=== PATIENT | male | born 1995 | race African-American/Black ===

== ENCOUNTER 2021-03-25 15:40 | Emergency (ER) | payer MEDICAID, SELFPAY ==
--- NOTE | ~2021-03-25 | XR_ITS ---
EXAMINATION: XR SOFT TISSUE NECK CLINICAL INDICATION: Question foreign body COMPARISON: None TECHNIQUE: 2 views of the soft tissue neck were obtained. FINDINGS: There is a foreign body overlying the nose. Otherwise no convincing evidence for a radiopaque foreign body. XR/XR soft tissue neck IMPRESSION: Foreign body overlying the nose.
--- NOTE | ~2021-03-25 | XR_ITS ---
EXAMINATION: XR CHEST CLINICAL INFORMATION: Concern for foreign body. COMPARISON: None TECHNIQUE: 2 views of the chest were obtained. FINDINGS: No radiopaque foreign body. No significant abnormality is noted involving the heart, lungs, mediastinum, bony thorax or soft tissues. XR/XR chest 2V IMPRESSION: Unremarkable examination. No radiopaque foreign body.
[2021-03-25 17:45] VITALS: BP 117/73; PULSE 60; RESP 18; TEMP 36.3; O2SAT 100; BMI 20.1
[2021-03-25 19:34] LABS: COVID-19 Test Negative (Negative)
[2021-03-25 20:03] VITALS: BP 115/82; PULSE 70; RESP 18; TEMP 36.8
[2021-03-25 20:11] LABS: IDNOW Serial# 08D9AD1C; Strep A Nucleic Acid Positive (Negative)
--- NOTE | 2021-03-25 20:40 | ED_ITS ---
HPI - General Adult General Chief complaint: General Medical Stated complaint: ?FB in throat Time Seen by Provider: 03/25/21 18:30 Source: patient Mode of arrival: ambulatory Limitations: no limitations History of Present Illness HPI narrative: 25-year-old male is here today for complaining of sore throat and difficulty swallowing. Patient reports that he has been sick 1 week ago with cold symptoms, cough, rhinorrhea, sinus pressure. Today he presents to emergency department reporting that when he swallows anything he feels like his throat is sore while he swallowing. He denies anything getting stuck in his throat, denies choking. Patient denies any shortness of breath, chest pain, palpitation. Patient denies any fever or chills. No ill contacts. Onset (ago): day(s) Location: mouth Radiation: non-radiation Severity: mild Quality: other (With swallowing) Related Data Previous Rx's Medication Instructions Recorded amoxicillin 500 mg capsule 500 mg PO TID 7 Days #21 cap 03/25/21 Allergies Allergy/AdvReac Type Severity Reaction Status Date / Time No Known Allergies Allergy Verified 03/25/21 17:44 Review of Systems Review of Systems: Constitutional : No Weight loss, No Fever, No Chills, No Night Sweats, No Fatigue, No Malaise ENT/Mouth : No Hearing loss, No Ear Pain, No Nasal Congestion, No Sinus Pain, No Hoarseness, sore throat, No Rhinorrhea, Swallowing Difficulty Eyes: No Eye Pain, No Swelling, No Redness, No Foreign Body, No Discharge, No Vision Changes Cardiovascular : No Chest Pain, No SOB, No Dyspnea on Exertion, No Orthopnea, No Edema, No Palpitations Respiratory : No Cough, No Sputum, No Wheezing, No Smoke Exposure, No Dyspnea Gastrointestinal : No Nausea, No Vomiting, No Diarrhea, No Constipation, No abdominal Pain, No Hematochezia, No Melena Genitourinary : no irregular bleeding, No Dysuria, No Urinary Frequency, No Hematuria, No Urinary Incontinence, No Urgency, No Flank Pain, No Urinary Flow Changes, No Hesitancy Musculoskeletal : No joint pain, No Myalgias, No Joint Swelling Skin : No Skin Lesions, No rash Neuro : No Weakness, No Numbness, No Paresthesias, No Loss of Consciousness, No Dizziness, No Headache Yes all other systems are reviewed and are negative ON LICENSE OF [facility] Social History Social History Advance Directives: No Physical Exam Vital Signs: Vital Signs: Last Vital Signs Temp 98.2 F 03/25/21 20:03 Pulse 70 03/25/21 20:03 Resp 18 03/25/21 20:03 BP 115/82 03/25/21 20:03 Pulse Ox 100 03/25/21 17:45 Body Mass Index 20.1 Const: General: healthy appearing, no acute distress and well developed Nutritional Appearance: well nourished Orientation/consciousness: patient oriented x3 HENMT: Head: Yes normal to inspection, Yes normocephalic and Yes atraumatic Ears: hearing grossly normal bilaterally and TM's normal bilaterally General nose exam: Normal external nose present and Normal nares present Face and sinus: Yes normal facial exam Mouth: Normal oral and palatal mucosa present Throat: Yes uvula midline, Yes abnormal tonsil (Redness), Yes posterior oropharynx abnormal and Yes postnasal drainage Eyes: General: appearance normal, both eyes and all related structures Neck: Neck: Yes normal visual inspection, Yes full ROM and Yes trachea midline Thyroid: Thyroid normal Resp: Effort & Inspection: normal respiratory effort, able to speak in complete sentences, no tracheal deviation and symmetric chest movement Auscultation: clear to auscultation bilaterally Cardio: Jugular venous distension: no JVD Rate: regular rate Rhythm: regular rhythm Heart sounds: S1 normal heart sound present, S2 normal heart sound present, no gallops and no murmurs GI: Inspection: Yes normal to inspection and No distended Palpation (GI): Soft to palpation, not firm, nontender and No hepatosplenomegaly present Auscultation: normal bowel sounds : General: Yes no CVA tenderness Back/Spine/Pelvis: Back: no CVA tenderness Skin: General skin exam: elasticity normal, turgor normal and dry skin Neuro: General: patient oriented x3 Psych: Appearance: grossly normal Mental Status: mental status grossly normal Speech and movement: Normal speech and movement present Affect: normal affect Attitude: cooperative Thought process: Normal thought process present Thought content: Normal thought content present Insight: Good insight present (Psych) Judgement: Good judgement present (Psych) Course Course Course Narrative: [age] year old male is here today after upper respiratory infection for 1 week. Patient reports that he had rhinorrhea sinus pressure and coughing for 1 week. Today he reports that he has sore throat. Patient reports that it hurts when he swallow water or anything else. Patient denies any ill contacts. Will swab him for COVID and strep. Reevaluation(s) Reevaluation #1: COVID-19 swab negative. Strep positive. Will give him 1st dose of antibiotic today and send him home on 7 day therapy. Medical Decision Making Lab Data Labs: Lab Results 03/25/21 03/25/21 Range/Units 19:15 19:56 COVID-19 ([facility]) Negative (Negative) COVID-19 Clin Com See Note S. pyogenes GrpA IRIS Positive A (Negative) Imaging Data Chest x-ray: Attestation: I personally reviewed and interpreted this imaging study as follows: Radiologist's impression: FINDINGS: No radiopaque foreign body. No significant abnormality is noted involving the heart, lungs, mediastinum, bony thorax or soft tissues. Soft tissue neck x-ray: Attestation: I personally reviewed and interpreted this imaging study as follows: Radiologist's impression: FINDINGS: There is a foreign body overlying the nose. Otherwise no convincing evidence for a radiopaque foreign body. Discharge Plan Discharge Clinical Impression: Strep pharyngitis Patient Disposition: Home, Self-Care Instructions: Pharyngitis (ED), Strep Throat (ED) Additional Instructions: You were seen here today for complaining of sore throat. We swabbed you for COVID-19 and that was negative. We swabbed you for strep and that is positive. You need to make sure that you stay on antibiotic for 7 days. Prescriptions: New amoxicillin 500 mg capsule 500 mg PO TID 7 Days Qty: 21 RF: 0 Stand Alone Forms: Work/School Release Interventions: ED Discharge Assessment Last Done: 03/25/21 21:07 Discharge Date/Time: 03/25/21 21:08
[2021-03-25] MEDS: Amoxicillin 500 MG CAPSULE PO (21:05)
== END 2021-03-25 21:08 | disposition home or self-care (01) ==
PROVIDERS: Nurse Practitioner Family; Emergency Provider Emergency Medicine
DX: J02.0 Streptococcal pharyngitis (principal); Z20.822 Contact with and (suspected) exposure to COVID-19
CPT/HCPCS: 36415; 70360; 71046; 87635; 87651; 99283

== ENCOUNTER 2021-04-13 16:40 | Emergency (ER) | payer MEDICAID, SELFPAY ==
[2021-04-13 16:46] VITALS: BP 150/100; PULSE 100; O2SAT 96
[2021-04-13 17:54] VITALS: BP 148/78; PULSE 102; RESP 18; TEMP 36.6; O2SAT 100; BMI 20.6
[2021-04-13 18:38] LABS: COVID-19 Test Positive (Negative); IDNOW Serial# 08D9AD1C
[2021-04-13 18:48] VITALS: BP 142/64; PULSE 102; RESP 18; TEMP 36.9; O2SAT 100
--- NOTE | 2021-04-13 20:03 | PC.NURSE ---
Tobin (wally) to provide transportation home when pt is ready for discharge. [phone]
--- NOTE | 2021-04-13 20:39 | ED_ITS ---
HPI - Headache General Chief Complaint: Headache Stated Complaint: headache Time Seen by Provider: 04/13/21 20:18 Source: patient Mode of arrival: ambulatory Limitations: no limitations History of Present Illness HPI Narrative: 25-year-old male here with complaints of headache, subjective fever, back pain, body aches since early this morning. Patient has not received a COVID vaccine. He denies any chills, vomiting, diarrhea, abdominal pain, chest pain, shortness of breath or cough. Related Data Previous Rx's Medication Instructions Recorded amoxicillin 500 mg capsule 500 mg PO TID 7 Days #21 cap 03/25/21 acetaminophen 325 mg tablet 650 mg PO Q4H PRN #30 tab 04/13/21 (Tylenol) ibuprofen 600 mg tablet 600 mg PO Q8H PRN #20 tab 04/13/21 Allergies Allergy/AdvReac Type Severity Reaction Status Date / Time No Known Allergies Allergy Verified 03/25/21 17:44 Review of Systems Review of Systems: Yes all other systems are reviewed and are negative Constitutional: Constitutional: Reports no additional constitutional complaints, Reports body ache(s), Denies chills, Reports fever(s) ( Subjective), Reports headache(s) and Denies weakness Eyes: Eyes: Reports no additional eye complaints and Denies change in vision ENT: Reports system reviewed and no additional complaints, except as documented, Denies dizziness, Reports headache(s), Denies nasal congestion, Denies nasal discharge and Denies neck pain Cardiovascular: Cardiovascular: Reports no additional cardiovascular complaints, Denies chest pain, Denies leg edema and Denies dyspnea Respiratory: Respiratory: Reports no additional respiratory complaints, Denies cough and Denies dyspnea Gastrointestinal: Gastrointestinal: Reports no additional gastrointestinal com plaints, Denies abdominal pain, Denies diarrhea, Denies nausea and Denies vomiting Genitourinary: Genitourinary: Denies urinary incontinence Musculoskeletal: Musculoskeletal: Reports no additional musculoskeletal complaints, Reports back pain, Denies arthralgias, Denies joint swelling, Denies neck pain, Denies numbness and Denies tingling Integumentary/Breasts: Skin/Breast: Reports system reviewed and no additional complaints, except as docu and Denies rash Neurologic: Reports system reviewed and no additional complaints, except as documented, Denies Abnormal speech present, Denies dizziness, Reports headache(s), Denies numbness, Denies tingling and Denies weakness [facility] Past Medical History Attestation statement: The following information was validated with the patient. Source: old records reviewed and nursing notes reviewed Social History Social History Advance Directives: No Physical Exam Vital Signs: Vital Signs: Last Vital Signs Temp 98.4 F 04/13/21 18:48 Pulse 102 H 04/13/21 18:48 Resp 18 04/13/21 18:48 BP 142/64 H 04/13/21 18:48 Pulse Ox 100 04/13/21 18:48 BMI result Body Mass Index 20.6 Const: General: cooperative, healthy appearing, comfortable and no acute distress Orientation/consciousness: patient oriented x3 Limitations: no limitations HENMT: Head: Yes normal to inspection Ears: hearing grossly normal bilaterally General nose exam: Normal external nose present Face and sinus: Yes normal facial exam Mouth: Normal oral and palatal mucosa present Throat: Yes posterior oropharynx normal Eyes: General: appearance normal, both eyes and all related structures Pupils: Equal, round and reactive pupils present Neck: Neck: Yes normal visual inspection, Yes full ROM, Yes no lymphadenopathy and Yes no meningeal signs Chest: Chest palpation & inspection: normal inspection of the chest Resp: Effort & Inspection: normal respiratory effort Auscultation: clear to auscultation bilaterally Cardio: Rate: regular rate Rhythm: regular rhythm Peripheral pulses: Peripheral pulses 2+ throughout GI: Inspection: Yes normal to inspection Palpation (GI): Soft to palpation and nontender Auscultation: normal bowel sounds Back/Spine/Pelvis: Thoracic/Lumbar Spine: thoracic and lumbar spine normal to inspection Skin: General skin exam: no rashes or lesions noted Neuro: General: patient oriented x3, no meningeal signs, no focal motor deficits and normal sensation to monofilament Cranial nerves: Yes Equal, round and reactive pupils present Cognition (Neuro): normal cognition Speech: No Abnormal speech present Gait exam (Neuro): Normal gait present Motor exam (neuro): 5/5 motor strength present throughout Extrem: General: Yes normal to inspection Course Course Course Narrative: 25-year-old male healthy, here with complaints of body aches, headache, back pain, subjective fevers for 1 day. Patient has not received a COVID vaccine. His vital signs are stable. Exam Is benign. His COVID test is positive. No hypoxia or tachypnea. Received Motrin for headache. no lymphadenopathy or meningeal signs. reviewed worrisome signs and symptoms of when to return to the emergency department. Comfortable discharge home. MDM - Headache Medical Records Attestation: I reviewed the patient's medical records. Lab Data Attestation: I reviewed the patient's lab results. Labs: Lab Results 04/13/21 Range/Units 18:22 COVID-19 ([facility]ERR[facility]) Positive A (Negative) COVID-19 Clin Com See Note Discharge Plan Discharge Clinical Impression: COVID-19 Patient Disposition: Home, Self-Care Instructions: COVID-19 (Coronavirus Disease 2019) (ED) Additional Instructions: Quarantine for 10 days take Motrin or Tylenol if able as needed increase fluids rest Prescriptions: New ibuprofen 600 mg tablet 600 mg PO Q8H PRN (Reason: pain) Qty: 20 RF: 0 acetaminophen [Tylenol] 325 mg tablet 650 mg PO Q4H PRN (Reason: fever or pain) Qty: 30 RF: 0 No Action amoxicillin 500 mg capsule 500 mg PO TID 7 Days Qty: 21 RF: 0 Referrals: Physician,Nonstaff [Primary Care Provider] - 2 days Stand Alone Forms: Work/School Release Interventions: ED Discharge Assessment Last Done: 04/13/21 20:58 Discharge Date/Time: 04/13/21 20:58
[2021-04-13] MEDS: Ibuprofen 600 MG TABLET PO (20:57)
== END 2021-04-13 20:58 | disposition home or self-care (01) ==
PROVIDERS: Emergency Provider Emergency Medicine
DX: U07.1 COVID-19 (principal); R51.9 Headache, unspecified; R50.9 Fever, unspecified; M54.50 Low back pain, unspecified; Z79.899 Other long term (current) drug therapy
CPT/HCPCS: 36415; 87635; 99283